=== PATIENT | male | born 1990 | race Caucasian/White ===

== ENCOUNTER 2022-08-02 12:33 | Emergency (ER) | payer SELFPAY ==
[2022-08-02] VITALS (51 sets, daily range): BP systolic 139–171; BP diastolic 53–133; PULSE 81–95; RESP 18; TEMP 37.5; O2SAT 95–99
--- NOTE | 2022-08-02 | DI.CT_ITS ---
Exam(s) CT LUMBAR SPINE RECONS CT ABDOMEN PELVIS W EXAM: CT ABDOMEN PELVIS W CLINICAL HISTORY: trauma pelvic fx. TECHNIQUE: Imaging Protocol: Axial computed tomography images with coronal and sagittal reformatted images were created and reviewed CONTRAST MATERIAL: Intravenous: Omnipaque 350 Contrast volume:100 ml Oral: no COMPARISON: CT CT LUMBAR SPINE RECONS from 08/02/2022 CR,XR XR HIP RT COMPLETE AP PELVIS from 08/02/2022 FINDINGS: ABDOMEN: Lung Bases: Normal where visualized. Liver: Normal density. No measurable mass. Gallbladder and biliary tract: No radiodense calculus or dilation. Pancreas: Normal density, no abnormal calcifications or inflammatory process. Spleen: Normal. Kidneys: Normal size, contour and axis. No radiodense stones or obstructive uropathy. No suspicious m asses seen. Adrenal glands: No masses seen. Abdominal Aorta: Abdominal portion non-dilated. Soft tissues: Unremarkable. Lumbar spine: Fractures of the left transverse processes of L2, L3 and L4. The vertebral bodies appe ar intact. PELVIS: Bladder: No gross wall thickening. No calculi.No focal mass. Bowel: No obstruction. No bowel wall thickening. Appendix normal. Peritoneal cavity: No ascites, collection or mesenteric inflammatory response. Bones: Pelvis: Comminuted right acetabular fracture and adjacent soft tissue swelling. A component o f the fracture extends in the sagittal plane through the anterior acetabulum through the mid posterio r portion of the acetabulum which is mildly displaced. There is marked comminution at the posterior inferior margin of the posterior acetabulum with the main fracture component seen extending transvers joyce. Hip joint effusion. SI joints and pubic symphysis appear intact. Proximal femurs are intact. Reproductive organs: Within normal limits. Lymph nodes: Unremarkable. Impression: Comminuted, mildly displaced fractures of the anterior, mid and posterior right acetabulum with joint effusion and surrounding soft tissue swelling.. Mildly displaced fractures of transverse processes of L2, L3 and L4. No evidence of or organ injury. RADIATION DOSE DELIVERED: Total DLP DATA REPOSITORY: All CT scans at this facility are submitted to the National Radiology Data Registry (NRDR) Dose Index Registry (DIR) with the [employer] (ACR). RADIATION OPTIMIZATION: All CT scans at this facility use at least one of these dose optimization te chniques: automated exposure control; mA and/or kV adjustment per patient size (includes targeted exa ms where dose is matched to clinical indication); or iterative reconstruction.
--- NOTE | 2022-08-02 12:45 | DI.RAD_ITS ---
Exam(s) XR HIP RT COMPLETE AP PELVIS EXAM: XR HIP RT COMPLETE AP PELVIS INDICATION: fall. COMPARISON: No exams were available for comparison TECHNIQUE: 2D digital imaging was performed. Three views. FINDINGS: There are multiple fracture lines seen in the right acetabulum. The fractures involve the superior, mid and inferior portions of the acetabulum. There are comminuted fragment seen from the inferior ma rgin of the acetabulum. There is minimal displacement. The SI joints and pubic symphysis appear int act. Proximal femur is intact. IMPRESSION: Comminuted fractures involving the right acetabulum. DATA REPOSITORY: RADIATION DOSE DELIVERED:
[2022-08-02] MEDS: MORPHine 10 MG/ML VIAL 6 MG IVP ×2 (13:00→14:46)
--- NOTE | 2022-08-02 13:00 | NUR.NOTE ---
c-collar removed by MD Velasquez
[2022-08-02 13:07] LABS: Abs Immature Grans 0.19 10^3/uL (0.0-0.06); Absolute Basophil Count 0.05 10^3/uL (0.0-0.2); Absolute Eosinophil Count 0.08 10^3/uL (0.0-0.7); Basophils % 0.3; Eosinophils % 0.5; HCT 42.3 % (40.0-50.0); HGB 14.5 g/dL (13.5-17.5); Immature Grans % 1.3; Lymphocytes % 12.1; MCH 28.9 pg (27.0-33.0); MCHC 34.3 % (32.0-36.0); MCV 84 fL (80-95); MPV 8.8 fL (8.0-11.0); Monocytes % 6.4; Neutrophils % 79.4; Platelet Count 281 10^3/uL (130-400); RBC 5.02 10^6/uL (4.36-5.78); RDW 12.3 % (11.8-14.1); RDW-SD 37.5 fL; WBC 15.07 10^3/uL (4.4-10.8)
[2022-08-02 13:13] LABS: Absolute Lymphocyte Count 1.82 10^3/uL (1.2-3.4); Absolute Monocyte Count 0.96 10^3/uL (0.1-0.8); Absolute Neutrophil Count 11.97 10^3/uL (1.2-6.7)
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
[2022-08-02 13:25] LABS: ALT 42 U/L (16-63); AST 23 U/L (15-37); Albumin 4.2 g/dL (3.4-5.0); Alkaline Phosphatase 72 U/L (46-116); Anion Gap 10.3 mmol/L (3-11); BUN 13 mg/dL (7-18); Bilirubin, Total 0.6 mg/dL (0.2-1.0); CO2 24.7 mmol/L (21.0-32.0); CREATININE 1.3 mg/dL (0.70-1.30); Chloride 105 mmol/L (98-107); Estimated GFR 76.26 (mL/min/1.73m2); Glucose 97 mg/dL (74-106); Potassium 3.8 mmol/L (3.5-5.1); Sodium 140 mmol/L (136-145); Total Protein 7.5 g/dL (6.4-8.2)
--- NOTE | 2022-08-02 13:30 | DI.CT_ITS ---
Exam(s) CT CERVICAL SPINE WO EXAM: CT CERVICAL SPINE WO CLINICAL HISTORY: fall. TECHNIQUE: Imaging Protocol: Axial computed tomography images with coronal and sagittal reformatted images were created and reviewed CONTRAST MATERIAL: Noncontrast COMPARISON: No exams were available for comparison FINDINGS: Bones: No fracture or dislocations are seen. The alignment of the cervical spine is normal including the cervicovertebral junction and cervicothoracic junction. Soft Tissues: The soft tissues of the neck are unremarkable. No large disk herniations are identified . The visualized portions of the lung apices are clear. No pneumothorax is seen. IMPRESSION: Normal CT scan of the cervical spine. RADIATION DOSE DELIVERED: 616.67mGy.cm Total DLP DATA REPOSITORY: All CT scans at this facility are submitted to the National Radiology Data Registry (NRDR) Dose Index Registry (DIR) with the [employer] (ACR). RADIATION OPTIMIZATION: All CT scans at this facility use at least one of these dose optimization te chniques: automated exposure control; mA and/or kV adjustment per patient size (includes targeted exa ms where dose is matched to clinical indication); or iterative reconstruction.
[2022-08-02] MEDS: Omnipaque 350 MG/ML 100 ML BTL IJ (13:44)
[2022-08-02] MEDS: Normal Saline - Diluent 50 ML VIAL IJ (13:47)
--- NOTE | 2022-08-02 13:50 | DI.VRAD_ITS ---
PROCEDURE INFORMATION: Exam: XR Right Hip Exam date and time: 08/02/2022 1:25 PM Age: 31 years old Clinical indication: Injury or trauma; Fall; Blunt trauma (contusions or hematomas); Right; Groin TECHNIQUE: Imaging protocol: Radiologic exam of the right hip. Views: 2 or 3 views hip with pelvis when performed. COMPARISON: No relevant prior studies available. FINDINGS: Bones/joints: There is a fracture of the ileum, ischium, and acetabulum which is in near anatomic alignment. There is associated soft tissue swelling of the hip and lateral aspect of the right pelvic wall. There is a right hip effusion. The right femur appears intact, but an occult fracture may be present. Soft tissues: See Bones/joints finding. IMPRESSION: Multiple pelvic fractures in near anatomic alignment as discussed above. Recommend pelvic CT for further evaluation as there may be additional fractures that are not appreciated on plain films. Dictated and Authenticated by: Nickie Castro MD. Ordering:GIN Ortiz MD
--- NOTE | 2022-08-02 14:32 | DI.VRAD_ITS ---
PROCEDURE INFORMATION: Exam: CT Cervical Spine Without Contrast Exam date and time: 08/02/2022 1:40 PM Age: 31 years old Clinical indication: Injury or trauma; Fall; Blunt trauma TECHNIQUE: Imaging protocol: Computed tomography of the cervical spine without contrast. COMPARISON: No relevant prior studies available. FINDINGS: Bones/joints: No acute fracture. Normal alignment. No significant disc bulge or herniation. No severe spinal canal stenosis. No significant neural foraminal narrowing. Lungs: Lung apices are normal. Soft tissues: Unremarkable. IMPRESSION: No acute findings. Dictated and Authenticated by: Adam Crowell MD. Ordering:GIN Ortiz MD
--- NOTE | 2022-08-02 14:53 | DI.VRAD_ITS ---
PROCEDURE INFORMATION: Exam: CT Abdomen And Pelvis With Contrast Exam date and time: 08/02/2022 1:45 PM Age: 31 years old Clinical indication: Injury or trauma; Fall; Blunt TECHNIQUE: Imaging protocol: Computed tomography of the abdomen and pelvis with contrast. COMPARISON: CR XR HIP RT COMPLETE AP PELVIS 02/08/2022 13:25 FINDINGS: Diaphragm: Small hiatal hernia. Liver: Possible hematoma anterior to the liver series 4 image 11 through 15. Normal. No mass. Gallbladder and bile ducts: Normal. No calcified stones. No ductal dilation. Pancreas: Normal. No ductal dilation. Spleen: Normal. No splenomegaly. Adrenal glands: Normal. No mass. Kidneys and ureters: Normal. No hydronephrosis. Stomach and bowel: Contracted stomach. Normal caliber small bowel. Appendix: No evidence of appendicitis. Intraperitoneal space: Unremarkable. No free air. No significant fluid collection. Vasculature: Unremarkable. No abdominal aortic aneurysm. Lymph nodes: Scattered inguinal lymph nodes. Urinary bladder: Unremarkable as visualized. Reproductive: Unremarkable as visualized. Bones/joints: Comminuted right acetabular fracture with joint effusion and large surrounding hematoma involving the right hip. The acetabular fracture involves the anterior, superior, and posterior acetabulum with displaced fracture fragments. Left L2, L3, and L4 transverse process fracture. Soft tissues: Fat distension of the right inguinal canal. Soft tissue swelling of the right medial pelvic wall. IMPRESSION: 1. Comminuted right acetabular fracture involving the anterior, superior, and posterior aspect with a joint effusion and large surrounding hematoma. 2. Fractured left 2nd, 3rd, and 4th transverse process. 3. Possible hematoma anterior to the liver as discussed above. Dictated and Authenticated by: Nickie Castro MD. Ordering:GIN Ortiz MD
--- NOTE | 2022-08-02 15:07 | DI.VRAD_ITS ---
PROCEDURE INFORMATION: Exam: CT Lumbar Spine Without Contrast Exam date and time: 08/02/2022 1:45 PM Age: 31 years old Clinical indication: Injury or trauma; Fall; Blunt trauma (contusions or hematomas) TECHNIQUE: Imaging protocol: Computed tomography of the lumbar spine without contrast. COMPARISON: CR XR HIP RT COMPLETE AP PELVIS 02/08/2022 13:25 FINDINGS: Bones/joints: In the lumbar vertebral bodies are intact. There is no subluxation or significant disc space narrowing. There is a left L2, L3, and L4 transverse process fracture. Comminuted right acetabular fracture. Soft tissue swelling of the medial right pelvic wall and right hip effusion. Mild broad-based disc bulge without spinal stenosis or neural foraminal stenosis at L5-S1. Soft tissues: Soft tissue swelling of the medial right pelvic wall and right hip effusion. IMPRESSION: 1. Fractured left L2, L3, and L4 transverse process. 2. Comminuted right acetabular fractures discussed above. 3. Additional findings as discussed above. Dictated and Authenticated by: Nickie Castro MD. Ordering:GIN Ortiz MD
== END 2022-08-02 14:49 | disposition other institution (70) ==
PROVIDERS: Emergency Provider Emergency Medicine
DX: S32.9XXA Fracture of unspecified parts of lumbosacral spine and pelvis, initial encounter for closed fracture (principal); V19.3XXA Pedal cyclist (driver) (passenger) injured in unspecified nontraffic accident, initial encounter
CPT/HCPCS: 80053; 96374; 96376; 99285; 72125; 73502; 74177; 81003; 85025; J2270; J3490